=== PATIENT | male | born 1985 | race Caucasian/White ===

== ENCOUNTER 2017-01-28 21:16 | Emergency (ER) | payer BC ==
[~2017-01-28] VITALS: Ht 177.8 cm; Wt 79.4 kg
--- NOTE | 2017-01-28 21:45 | Emergency Room Report ---
History of Present Illness General Source: Patient Present Illness HPI 31-year-old male no significant past medical history presenting with seizure/ syncope/fall. History is provided by EMS as patient does not recall event. EMS states that patient was at a store, a bystander saw him fall to the ground, convulse for 10 seconds. Patient woke up and then a few minutes later again fell to the ground, convulse for another 10 seconds. Patient does not recall event he does remember feeling like he is going to faint. Patient denies any preceding nausea vomiting chest pain shortness of breath before the fall but states that he felt slightly lightheaded. No tongue biting or any incontinence Denies history of seizures Pt admits to smoking marijuana today, states that he normally never smokes marijuana. Patient also states that this week he took a new testosterone booster. Patient sustained laceration to left eyebrow Tetanus is not up-to-date Patient currently only complaining of pain to laceration, denies headache neck pain nausea vomiting, denies any abdominal pain Allergies: Coded Allergies: No Known Allergies (Unverified , 01/28/17) Patient History Past Medical History: see triage record Past Surgical History: none Pertinent Family History: none Social History: Reports: smoking, drug use Reviewed Nursing Documentation: PMH: Agreed, PSxH: Agreed Review of Systems All Other Systems: negative except mentioned in HPI Physical Exam Sp02 EP Interpretation: reviewed, normal General Appearance: normal inspection, well appearing, no apparent distress, alert, GCS 15, non-toxic Head: normocephalic - Left-sided eyebrow laceration, less than 2 cm, otherwise no hematoma ecchymosis on head Eyes: bilateral eye normal inspection, bilateral eye PERRL, bilateral eye EOMI ENT: normal ENT inspection, normal pharynx, normal voice, moist mucus membranes Neck: normal inspection, full range of motion, supple, no meningismus, no bony tend Respiratory: normal inspection, lungs clear, normal breath sounds, no respiratory distress, no retraction, no wheezing, speaking full sentences, chest symmetrical Cardiovascular #1: normal inspection, regular rate, rhythm, no edema, normal capillary refill Cardiovascular #2: 2+ radial (R), 2+ radial (L) Gastrointestinal: normal inspection, non tender, soft, non-distended, no guarding Genitourinary: no CVA tenderness Musculoskeletal: normal inspection, back normal, normal range of motion, non- tender Neurologic: normal inspection, alert, oriented x3, responsive, hr consultant III-XII nml as tested, motor strength/tone normal, sensory intact, normal gait, speech normal, other - L sided nystagmus Psychiatric: normal inspection, judgement/insight normal, memory normal Skin: normal inspection, normal color, no rash, warm/dry, well hydrated, normal turgor Procedures Laceration/Wound Repair Laceration/Wound Repair : Consent: Verbal Wound Location: face Wound's Depth, Shape: superficial Wound Length (cm): 4 Wound Explored: clean Irrigated w/ Saline (ccs): 500 Betadine Prep?: Yes Anesthesia: Lidocaine w/ Epi Wound Repaired With: sutures Suture Size/Type: 6:0 Number of Sutures: 7 Sterile Dressing Applied?: Yes Sling Applied?: No Patient Tolerated: Well Complications: None Medical Decision Making Diagnostic Impression: Primary Impression: Seizure Additional Impressions: Laceration Minor head injury ER Course 31-year-old male, fell, witnessed seizure-like activity x3 episodes DDX: Electrolyte disturbance, dehydration, hypovolemia, intox, intracranial pathology such as bleed, versus primary seizures Plan: Obtain labs, ua, utox, EKG, CXR (patient refused, states he does not need it) CT head Tdap Laceration repair ER course: Patient has been monitored during ED stay, HD stable No further seizures CT head negative Has been conversing appropriately with , not intoxicated. Laceration repair to Administered Disposition: Patient is clinically sober, is free from from distracting injury, and has intact judgement and capacity to decide to leave against medical advice. Patient came in for possible seizure, fall. I'm concerned for seizures. Patient verbalized understanding of my concern and my need to do the patient for further monitoring, but patient states "I understand, but I would still like to leave ". I explained to patient the risks of leaving AMA and patient informed that if they leave, they could get worse, ould become become critically ill, possibly become disabled or . Patient verbalized back to me understanding of these risks but still wants to leave. Pt AMA's Return precautions discussed with patient, otherwise patient was instructed to follow up with his primary care doctor For laceration, Strict return precautions discussed with patient such as fever, chills, increasing bleeding to site, purulent drainage, rapid swelling or redness to area. Patient verbalizes understanding. Patient sis informed of inevitable scar that will result from laceration despite repair. Pt instructed to avoid sun exposure to decrease the appearance of scar. Patient instructed to return to ED or their primary care doctor in 5-7 days for suture removal. Patient agrees with plan. Please note that this Emergency Department Report was dictated using [employer] technology software, occasionally this can lead to erroneous entry secondary to interpretation by the dictation equipment. Laboratory Tests Test 01/28/17 22:35 White Blood Count 8.6 K/UL (4.8-10.8) Red Blood Count 4.45 M/UL (4.70-6.10) L Hemoglobin 14.8 G/DL (14.2-18.0) Hematocrit 43.8 % (42.0-52.0) Mean Corpuscular Volume 98 FL (80-99) Mean Corpuscular Hemoglobin 33.2 PG (27.0-31.0) H Mean Corpuscular Hemoglobin Concent 33.8 G/DL (32.0-36.0) Red Cell Distribution Width 12.4 % (11.6-14.8) Platelet Count 164 K/UL (150-450) Mean Platelet Volume 12.5 FL (6.5-10.1) H Neutrophils (%) (Auto) 74.3 % (45.0-75.0) Lymphocytes (%) (Auto) 14.8 % (20.0-45.0) L Monocytes (%) (Auto) 8.9 % (1.0-10.0) Eosinophils (%) (Auto) 0.8 % (0.0-3.0) Basophils (%) (Auto) 1.1 % (0.0-2.0) Sodium Level 137 mEQ/L (135-145) Potassium Level 4.0 mEQ/L (3.4-4.9) Chloride Level 102 mEQ/L (98-107) Carbon Dioxide Level 22 mEQ/L (20-30) Anion Gap 13 (5-15) Blood Urea Nitrogen 27 mg/dL (7-23) H Creatinine 1.3 mg/dL (0.7-1.2) H Estimate Glomerular Filtration Rate > 60 mL/min (>60) Glucose Level 99 mg/dL (74-106) Calcium Level 9.1 mg/dL (8.6-10.2) Total Bilirubin 0.4 mg/dL (0.0-1.2) Aspartate Amino Transferase (AST) 13 U/L (5-40) Alanine Aminotransferase (ALT) 12 U/L (3-41) Alkaline Phosphatase 42 U/L (40-129) Total Creatine Kinase 94 U/L (38-174) Creatine Kinase MB < 1.5 ng/mL (< 6.7) Creatine Kinase MB Relative Index Troponin I < 0.30 ng/mL (<=0.30) Total Protein 6.7 g/dL (6.6-8.7) Albumin 4.5 g/dL (3.5-5.2) Globulin 2.2 g/dL Albumin/Globulin Ratio 2.0 (1.0-2.7) Salicylates Level < 1 mg/dL (10-30) L Acetaminophen Level < 10 ug/mL (10-30) L Serum Alcohol < 10 mg/dL EKG Diagnostic Results Rate: normal Rhythm: NSR ST Segments: no acute changes ASA given to the pt in ED: No Rhythm Strip Diag. Results EP Interpretation: yes Rate: 84 Rhythm: NSR, no PVC's, no ectopy CT/MRI/US Diagnostic Results CT/MRI/US Diagnostic Results : Imaging Test Ordered: CT head Impression CT HEAD: No ICH, mass effect or edema. No skull fracture. Electronically signed by Mary Olguin MD Disposition: AGAINST MEDICAL ADVICE Condition: Stable Patient Instructions: Facial Laceration, [id number], Head Injury, Adult, Easy -to-Read, Seizure, Adult Mary Olguin M.D. Jan 28, 2017 21:45
[2017-01-28 21:50] VITALS: BP 121/73
[2017-01-28] MEDS ORDERED: Tetanus/Diptheria/Pertussis Vaccine 0.5ml Syr IM ONE (22:45)
[2017-01-28] MEDS ORDERED: Ketorolac 30mg Inj IV ONE (22:45)
[2017-01-28 22:58] LABS: BASOPHILS % (AUTO) 1.1 % (0.0-2.0); EOSINOPHILS % (AUTO) 0.8 % (0.0-3.0); LYMPHOCYTES % (AUTO) 14.8 % (20.0-45.0); MEAN CORPUSCULAR HEMOGLOBIN 33.2 PG (27.0-31.0); MEAN CORPUSCULAR HGB CONC 33.8 G/DL (32.0-36.0); MEAN CORPUSCULAR VOLUME 98 FL (80-99); MEAN PLATELET VOLUME 12.5 FL (6.5-10.1); MONOCYTES % (AUTO) 8.9 % (1.0-10.0); NEUTROPHILS % (AUTO) 74.3 % (45.0-75.0); PLATELET COUNT 164 K/UL (150-450); RED BLOOD COUNT 4.45 M/UL (4.70-6.10); RED CELL DISTRIBUTION WIDTH 12.4 % (11.6-14.8); WHITE BLOOD COUNT 8.6 K/UL (4.8-10.8)
[2017-01-28 23:07] LABS: ACETAMINOPHEN < 10 ug/mL (10-30); ALCOHOL < 10 mg/dL; TROPONIN I < 0.30 ng/mL (<=0.30)
[2017-01-28 23:11] LABS: ALANINE AMINOTRANSFERASE 12 U/L (3-41); ANION GAP 13 (5-15); ASPARTATE AMINO TRANSFERASE 13 U/L (5-40); CALCIUM 9.1 mg/dL (8.6-10.2); CARBON DIOXIDE 22 mEQ/L (20-30); CHLORIDE 102 mEQ/L (98-107); CREATININE 1.3 mg/dL (0.7-1.2); GLOMERULAR FILTRATION RATE > 60 mL/min (>60); HEMOLYSIS 8; SODIUM 137 mEQ/L (135-145); TOTAL PROTEIN 6.7 g/dL (6.6-8.7)
[2017-01-28 23:17] LABS: CKMB < 1.5 ng/mL (< 6.7)
[2017-01-28] MEDS ORDERED: Lidocaine 1% Plain 30 ml INJ ONE (23:30)
[2017-01-29] VITALS: BP 121/73
[2017-01-29] MEDS ORDERED: Bacitracin Oint UD TOPIC ONE
[2017-01-29 00:05] VITALS: BP 121/73
--- NOTE | 2017-01-29 08:58 | Diagnostic Imaging Report ---
Indication: AMS loss of consciousness status post fall Technique: Continuous helical CT scanning of the head was performed without intravenous contrast material. Axial and coronal 5 mm sections were generated. Radiation dose was minimized using automated exposure control Dose: Total Dose Length Product - DLP [address] Dose Index - CTDIvol(s) 70.38 mGy. Comparison: None Findings: The ventricular system is normal in size and configuration. There is no shift of midline structures. No abnormal extra-axial fluid collections are noted. There is no evidence of intracerebral bleeding. No other abnormal high or low density areas are noted within the brain. The calvarium is intact. The orbits are unremarkable. The sinuses are clear. Impression: Normal CT scan of the head without contrast material. This agrees with the preliminary interpretation provided overnight by [facility]. The CT scanner at [facility] [place] is accredited by the [employer] and the scans are performed using protocols designed to limit radiation exposure to as low as reasonably achievable to attain images of sufficient resolution adequate for diagnostic evaluation.
--- NOTE | 2017-01-29 12:50 | Cardiology Report ---
APPROVED REPORT EKG Measurement Heart [id number] Normal sinus rhythm Normal ECG
== END 2017-01-29 00:05 | disposition left against medical advice (07) ==
LOC: EDBD 21:16 → EMR 21:43
DX: R56.9 Unspecified convulsions (principal); S01.112A Laceration without foreign body of left eyelid and periocular area, initial encounter; S09.90XA Unspecified injury of head, initial encounter; W19.XXXA Unspecified fall, initial encounter; Y93.9 Activity, unspecified; Y99.9 Unspecified external cause status; R55 Syncope and collapse; F12.90 Cannabis use, unspecified, uncomplicated; F17.200 Nicotine dependence, unspecified, uncomplicated; F19.90 Other psychoactive substance use, unspecified, uncomplicated; Z53.21 Procedure and treatment not carried out due to patient leaving prior to being seen by health care provider
CPT/HCPCS: 12013; 36415; 70450; 80053; 82550; 82553; 82962; 84484; 85025; 90471; 90715; 93005; 96374; 99284; G0480; 80329